=== PATIENT | female | born 1995 | race Two or more races ===

== ENCOUNTER 2023-02-08 14:28 | Outpatient (REF) | payer MEDICAID, SELFPAY ==
--- NOTE | ~2023-02-08 | US_ITS ---
EXAMINATION: US DIAGNOSTIC ULTRASOUND BREAST, RIGHT CLINICAL INFORMATION: 27-year-old with pea-sized palpable nodule noted by patient for approximately 6 months posterior lower right breast 5:00 position near inframammary fold. No prior breast imaging. Family history breast cancer, 2 aunts. COMPARISON: None (current study represents initial baseline exam). TECHNIQUE: Ultrasound of the breast is performed with real-time luong scale imaging and color Doppler. FINDINGS: There is no focal suspicious finding. There is no cystic or solid mass, architectural abnormality, duct ectasia, or edema in the soft tissue planes. The chest wall soft tissues are unremarkable. No skin thickening or edema tracking in soft tissue planes. Results are discussed with the patient at time of visit using an historical interpreter. US/US breast RT limited IMPRESSION: - Normal study. ASSESSMENT: BI-RADS 1: Negative RECOMMENDATION: Patient should be managed based on the clinical impression. If there is still clinical concern, further evaluation may be considered with surgical consult. Decision to proceed with biopsy should be based on clinical grounds and degree of clinical concern.
== END 2023-02-08 14:29 | disposition home or self-care (01) ==
LOC: HO.MAMMO 14:28
PROVIDERS: Visit Provider Registered Nurse
DX: N63.15 Unspecified lump in the right breast, overlapping quadrants (principal)
CPT/HCPCS: 76642